=== PATIENT | male | born 1985 | race Caucasian/White ===

== ENCOUNTER 2017-08-27 14:33 | Emergency (ER) | payer MEDICAID ==
[~2017-08-27] VITALS: Ht 185.4 cm; Wt 119.3 kg
[~2017-08-27 14:33] MED LIST: NOR10T
[2017-08-27 15:05] VITALS: BP 137/76
== END 2017-08-27 20:12 | disposition home or self-care (01) ==
LOC: ER 14:33
DX: S93.402A Sprain of unspecified ligament of left ankle, initial encounter (principal); F17.210 Nicotine dependence, cigarettes, uncomplicated; Z88.1 Allergy status to other antibiotic agents; Z88.8 Allergy status to other drugs, medicaments and biological substances; Z79.899 Other long term (current) drug therapy; W01.0XXA Fall on same level from slipping, tripping and stumbling without subsequent striking against object, initial encounter; Y93.89 Activity, other specified; Y99.8 Other external cause status; Y92.89 Other specified places as the place of occurrence of the external cause
CPT/HCPCS: 73610

== ENCOUNTER 2018-10-15 14:05 | Emergency (ER) | payer MEDICAID ==
[~2018-10-15] VITALS: Ht 188 cm; Wt 122.5 kg
[2018-10-15] MEDS ORDERED: HYDROcodone-ACET 10/325MG TAB PO ONE (18:15)
[2018-10-15] MEDS ORDERED: MORPHINE SULFATE 4 MG/ML SYR/VIAL IV ONE (19:45)
[2018-10-15] MEDS ORDERED: ONDANSETRON ODT 4 MG TAB PO ONE (19:45)
[2018-10-15 20:49] VITALS: BP 122/76
== END 2018-10-15 21:05 | disposition home or self-care (01) ==
LOC: ER 14:05
DX: S93.401A Sprain of unspecified ligament of right ankle, initial encounter (principal); S33.9XXA Sprain of unspecified parts of lumbar spine and pelvis, initial encounter; S90.31XA Contusion of right foot, initial encounter; S30.811A Abrasion of abdominal wall, initial encounter; F17.210 Nicotine dependence, cigarettes, uncomplicated; E66.9 Obesity, unspecified; Z68.34 Body mass index [BMI] 34.0-34.9, adult; Z88.1 Allergy status to other antibiotic agents; Z88.8 Allergy status to other drugs, medicaments and biological substances; V43.52XA Car driver injured in collision with other type car in traffic accident, initial encounter; Y93.I9 Activity, other involving external motion; Y92.488 Other paved roadways as the place of occurrence of the external cause; Y99.8 Other external cause status
CPT/HCPCS: 72131; 73630; 74176; 94761; 96374; 99284; J2270; Q0162

== ENCOUNTER 2019-04-03 11:19 | Emergency (ER) | payer MEDICAID ==
[~2019-04-03] VITALS: Ht 185.4 cm; Wt 117.9 kg
[2019-04-03 11:33] VITALS: BP 159/91
== END 2019-04-03 12:21 | disposition left against medical advice (07) ==
LOC: ER 11:28
DX: R07.9 Chest pain, unspecified (principal); Z53.21 Procedure and treatment not carried out due to patient leaving prior to being seen by health care provider
CPT/HCPCS: 93005

== ENCOUNTER 2020-05-05 17:40 | Emergency (ER) | payer MEDICAID ==
[~2020-05-05] VITALS: Ht 188 cm; Wt 136.1 kg
[2020-05-05 18:30] VITALS: BP 156/92
== END 2020-05-06 02:02 | disposition left against medical advice (07) ==
LOC: ER 17:43
DX: R07.9 Chest pain, unspecified (principal); Z53.21 Procedure and treatment not carried out due to patient leaving prior to being seen by health care provider